=== PATIENT | female | born 1990 | race Two or more races ===

== ENCOUNTER 2018-02-02 15:03 | Inpatient (IN) | payer MEDICARE, OTHER ==
[~2018-02-02] VITALS: Ht 165.1 cm; Wt 88.5 kg
[2018-02-02] MEDS ORDERED: PRED20TA PO (16:10)
[2018-02-02] MEDS ORDERED: TACR1CAP PO (16:10)
[2018-02-02] MEDS ORDERED: MYCO500T PO (16:10)
[2018-02-02 16:24] VITALS: BP 91/45
--- NOTE | 2018-02-02 17:27 | NUR ---
URGENT CARE NURSE PRACTITIONER NOTE RECEIVED PATIENT FROM [facility] DIRECT ADMIT UNDER CARE DONNIE MARTINEZ RN BUDGET SPECIALIST, PATIENT ALERT ORIENTED X3 ,PLACED ON TELE MONITOR SR 65 , PLAN OF CARE DISCUSSED WITH PATIENT , BED IN LOWEST AND LOCKED POSITION , CALL LIGHT WITHIN REACH , HOSPITAL ORIENTATION DONE , VS TAKE BELONGING CHECKED , PAGED TO DONNIE SOMMER BUDGET SPECIALIST FOR ADMISSION ORDERS, WILL CONT TO MONITOR CLOSELY
[2018-02-02] MEDS ORDERED: IV NS 0.9% 1,000 ML IV SCH (17:30)
[2018-02-02] MEDS ORDERED: Z GUARD REMEDY 2 OZ OINT TP PRN (17:30)
[2018-02-02] MEDS ORDERED: predniSONE 20 MG TABLET PO SCH (17:30)
[2018-02-02] MEDS ORDERED: MAG HYDROX/AL HYDROX/SIMETH 30 ML UDC PO PRN (17:30)
[2018-02-02] MEDS ORDERED: MAGNESIUM HYDROXIDE 30 ML UDC PO PRN (17:30)
[2018-02-02] MEDS ORDERED: TACROLIMUS ANHYDROUS 1 MG CAPSULE PO SCH (17:30)
[2018-02-02] MEDS ORDERED: MYCOPHENOLATE MOFETIL 250 MG CAPSULE PO SCH (17:30)
[2018-02-02] MEDS ORDERED: ONDANSETRON HCL/PF 4 MG/2 ML VIAL IVP PRN (17:30)
[2018-02-02 17:57] LABS: BASOPHILS # (AUTO) 0.1 /CMM (0.0-0.2); EOSINOPHILS % (AUTO) 0.6 % (0.0-6.0); HEMATOCRIT 41 % (33-45); HEMOGLOBIN 13.9 g/dL (11.5-14.8); LYMPHOCYTES # (AUTO) 1.8 /CMM (0.8-4.8); LYMPHOCYTES % (AUTO) 32.2 % (20.0-44.0); MEAN CORPUSCULAR HGB CONC 34 g/dl (31.0-36.0); MEAN CORPUSCULAR VOLUME 90 fL (82-100); MONOCYTES # (AUTO) 0.3 /CMM (0.1-1.30); MONOCYTES % (AUTO) 5.2 % (2.0-12.0); NEUTROPHILS # (AUTO) 3.3 /CMM (1.8-8.9); PLATELET COUNT (AUTO) 134 /CMM (150-450); RDW COEFFICIENT OF VARIATION 13.6 (11.5-15.0); RED BLOOD CELL COUNT(AUTO) 4.59 MIL/uL (4.0-5.2); WHITE BLOOD COUNT (AUTO) 5.4 K/uL (4.3-11.0)
--- NOTE | 2018-02-02 18:00 | NUR ---
LIME KILN OPERATOR NOTE KHOI PINO RN HEAT TREATER HEAD AT BEDSIDE EXAMINED PATIENT , BLOOD DROWN BY HEAD OF HOUSEKEEPING. MRSA SWAB DONE
[2018-02-02 18:13] LABS: CHOLESTEROL 174 mg/dL (<200); HDL CHOLESTEROL 52 mg/dL (40-60); LDL 86 mg/dL (0-99); TRIGLYCERIDES 168 mg/dL (30-150)
[2018-02-02 18:15] LABS: ALANINE AMINOTRANSFERASE 82 U/L (12-78); ALBUMIN 2.9 g/dL (3.4-5.0); ALKALINE PHOSPHATASE 256 U/L (46-116); ASPARTATE AMINOTRANSFERASE 54 U/L (15-37); BILIRUBIN,DIRECT 0.2 mg/dL (0.0-0.2); BILIRUBIN,TOTAL 0.7 mg/dL (0.2-1.0); CALCIUM, SERUM 8.5 mg/dL (8.5-10.1); CARBON DIOXIDE 30 mmol/L (21-32); CHLORIDE 109 mmol/L (98-107); CREATININE 0.7 mg/dL (0.6-1.3); GLUCOSE 92 mg/dL (74-106); MAGNESIUM 1.7 mg/dL (1.8-2.4); PHOSPHORUS 2.8 mg/dL (2.5-4.9); SODIUM SERUM 146 mmol/L (136-145); UREA NITROGEN, BLOOD 8 mg/dL (7-18)
[2018-02-02 18:16] LABS: ALBUMIN 2.9 g/dL (3.4-5.0)
[2018-02-02 18:19] LABS: TROPONIN I < 0.017 ng/mL (0.00-0.056)
[2018-02-02 18:23] LABS: POTASSIUM 2.7 mmol/L (3.5-5.1)
[2018-02-02 18:29] LABS: INR 0.88 (0.87-1.13)
[2018-02-02] MEDS ORDERED: PANTOPRAZOLE 40 MG VIAL IV SCH (18:30)
[2018-02-02] MEDS: POTASSIUM CL. PREMIX PERIPHER. 50 ML IV SCH ×3 (18:58→22:31)
--- NOTE | 2018-02-02 19:02 | NUR ---
HEAVY FORGING MACHINE OPERATOR NOTE REPORTED TO DONNIE SOMMER FLEET SALES ASSOCIATE K 2.7 WITH NEW ORDER KCL GIVEN DVT PUMPS BOTH LEGS APPALLED, WILL CONT TO MONITOR CLOSELY
[2018-02-02 20:00] VITALS: BP 110/72
[2018-02-02] MEDS: Potassium Chloride 20 MEQ in IV D5/0.45 NACL 1,000 ML IV SCH (20:18)
--- NOTE | 2018-02-02 20:20 | NUR ---
TELE/RAILROAD TRACK MECHANIC; RECEIVED PT'S REPORTS FROM RNLILLI FOR RICK[facility]. AT THIS TIME PT IN THE ROOM STANDING ON HER CELL PHONE. ON TELEMETRY. DENIES PAIN. HL INTACT LAC. BED ON LOWER POSITION AND LOCKED FOR SAFETY. SIDE RAILS X 2 ARE UP FOR SAFETY.
--- NOTE | 2018-02-02 20:30 | NUR ---
TELE/BROOMMAKER; I CALLED LAB. URINE SPECIMEN IS AVAILABLE FOR REVOLVING INVENTORY CLERK AND A LADY LAB. TECH DIONTE SAID OK. I NOTED ALSO THAT PT WENT FROM THE UNIT AND I TOLD THE CHARGE NURSE , AND PT SAID THAT THE DOCTOR ALLOWED HER TO GET OUT. SO I DID WENT AFTER HER AND I NOTIFIED THE SECURITY AND PT WAS IN THE PARKING AREA NEAR THE ER AND SHE WAS FOUND BY THE SECURITIES AND ESCORTED HER WITH HER BOYFRIEND BACK TO THE [facility] UNIT AND TO HER ROOM. I TOLD THE PT THAT NO ORDER FOR HER TO GET OUT THE UNIT. I TOLD HER ALSO THE RN IIS GOING TO START THE POTASSIUM IVPB REPLACEMENTS.
[2018-02-02 20:50] LABS: APPEARANCE,URINE SL CLOUDY (CLEAR); BILIRUBIN,URINE NEGATIVE (NEGATIVE); BLOOD, URINE NEGATIVE Ery/uL (NEGATIVE); COLOR,URINE YELLOW (YELLOW); KETONES,URINE NEGATIVE (NEGATIVE); LEUKOCYTE ESTERASE ,URINE 1+ (NEGATIVE); NITRITE, URINE NEGATIVE (NEGATIVE); PROTEIN,URINE NEGATIVE (NEGATIVE); UGLUCOSE NEGATIVE (NEGATIVE)
[2018-02-02 21:24] LABS: BACTERIA,URINE Many /HPF (None Seen); RBC,URINE NONE SEEN /HPF (0-2); SQUAMOUS EPITHELIAL CELL,UR Moderate /HPF (None Seen)
[2018-02-02] MEDS: MYCOPHENOLATE MOFETIL 250 MG CAPSULE PO SCH (22:04)
[2018-02-02] MEDS: predniSONE 20 MG TABLET PO SCH (22:06)
[2018-02-02] MEDS: TACROLIMUS ANHYDROUS 1 MG CAPSULE PO SCH (22:06)
[2018-02-03] VITALS (7 sets, daily range): BP systolic 105–143; BP diastolic 60–71
[2018-02-03] MEDS: POTASSIUM CL. PREMIX PERIPHER. 50 ML IV SCH (00:20)
[2018-02-03 06:39] LABS: BASOPHILS % (AUTO) 0.3 % (0.0-2.0); EOSINOPHILS % (AUTO) 0.1 % (0.0-6.0); HEMATOCRIT 44 % (33-45); HEMOGLOBIN 14.9 g/dL (11.5-14.8); LYMPHOCYTES # (AUTO) 0.8 /CMM (0.8-4.8); LYMPHOCYTES % (AUTO) 12.8 % (20.0-44.0); MEAN CORPUSCULAR HGB CONC 34 g/dl (31.0-36.0); MEAN CORPUSCULAR VOLUME 90 fL (82-100); MONOCYTES # (AUTO) 0.1 /CMM (0.1-1.30); MONOCYTES % (AUTO) 1.2 % (2.0-12.0); NEUTROPHILS # (AUTO) 5.4 /CMM (1.8-8.9); NEUTROPHILS % (AUTO) 85.6 % (43.0-81.0); PLATELET COUNT (AUTO) 142 /CMM (150-450); RDW COEFFICIENT OF VARIATION 14.1 (11.5-15.0); WHITE BLOOD COUNT (AUTO) 6.3 K/uL (4.3-11.0)
--- NOTE | 2018-02-03 06:52 | NUR ---
TELE/RN TESTING; SLEPT AT GOOD INTERVALS. PT ON SB 57. IVF ON PROGRESS. SHE SAID VOIDED X1 NO BM. DENIES PAIN. WILL ENDORSE TO THE DAY SHIFT . CALL LIGHT WITHIN REACH.
[2018-02-03 06:59] LABS: CALCIUM, SERUM 8.9 mg/dL (8.5-10.1); CREATININE 0.6 mg/dL (0.6-1.3); POTASSIUM 3.7 mmol/L (3.5-5.1)
--- NOTE | 2018-02-03 07:25 | NUR ---
SHOVEL ENGINEER NOTES PATIENT RECEIVED RESTING INSIDE ROOM, SLEEPING, EASILY AROUSABLE THROUGH VERBAL AND TACTILE STIMULI. PATIENT BREATHING EVEN AND UNLABORED. NO SOB OR ACUTE DISTRESS NOTED. PATIENT DENIES ANY PAIN OR DISCOMFORT. NO CHANGES IN LOC NOTED. IV SITE INTACT AND PATENT. WILL CONTINUE TO MONITOR. BED LOCKED AND IN LOW POSITION. BILATERAL UPPER SIDE RAILS UP AND LOCKED. CALL LIGHT WITHIN EASY REACH
[2018-02-03 07:32] LABS: ALBUMIN 2.8 g/dL (3.4-5.0); BILIRUBIN,TOTAL 0.7 mg/dL (0.2-1.0); TOTAL PROTEIN, SERUM 6.2 g/dL (6.4-8.2)
[2018-02-03] MEDS: MYCOPHENOLATE MOFETIL 250 MG CAPSULE PO SCH (08:49)
[2018-02-03] MEDS: TACROLIMUS ANHYDROUS 1 MG CAPSULE PO SCH (08:49)
[2018-02-03] MEDS: predniSONE 20 MG TABLET PO SCH (08:49)
[2018-02-03] MEDS: Potassium Chloride 20 MEQ in IV D5/0.45 NACL 1,000 ML IV SCH (09:28)
--- NOTE | 2018-02-03 09:30 | NUR ---
MORTGAGE LOAN INTERVIEWER NOTES PATIENT WITH EPISODES OF REQUESTING TO TURN OFF IV. DOEST NOT COMPLAIN OF PAIN OR DISCOMFORT. NO SWELLING OR DISCOLORATION ON IV SITE. PATIENT DUE FOR NEXT BAG OF IV D5 1/2 NS WITH KCL 20 MEQ. CURRENT BAG STILL NOTED WITH REMAINING 310 ML. WILL CONTINUE TO MONITOR
[2018-02-03] MEDS ORDERED: CEPH-570 PO (15:28)
[2018-02-03] MEDS ORDERED: POTA20TA83 PO (15:28)
--- NOTE | 2018-02-03 16:00 | NUR ---
TAP AND DIE MAKER TECHNICIAN NOTES PATIENT SEEN AND EXAMINED BY DONNIE BARNES. WITH ORDERS TO DO STAT HCG/ TEST ON BLOOD SAMPLE THAT WAS DRAWN THIS AM. ORDER NOTED AND CARRIED OUT. LAB MADE AWARE. RESULT OBTAINED WITH 'NEGATIVE' REPORT. DONNIE BARNES MADE AWARE AND GAVE ORDER FOR PATIENT TO DC HOME. ORDER NOTED AND CARRIED OUT. PATIENT MADE AWARE AND VERBALIZED UNDERSTANDING.
--- NOTE | 2018-02-03 17:03 | NUR ---
SKIDDER NOTES PATIENT WITH ORDER TO DISCHARGE HOME TODAY. DISCHARGE TEACHING AND INSTRUCTIONS PROVIDED AND VERBALIZED UNDERSTANDING. PATIENT WITH FOLLOW-UP APPOINTMENT SET UP AT [facility] ON TUESDAY. PATIENT AWARE AND VERBALIZED UNDERSTANDING. PATIENT PROVIDED WITH WRITTEN PRESCRIPTIONS OF MEDICATIONS. ALL BELONGINGS COMPLETE UPON DISCHARGE, NO REPORT OF MISSING INVENTORY. PATIENT AFEBRILE, SKIN DRY AND WARM TO TOUCH. NO CHANGES IN LOC NOTED. NO NEW SKIN BREAKDOWN NOTED. IV REMOVED WITH MINIMAL BLEEDING NOTED, PRESSURE DRESSING APPLIED. BOYFRIEND PRESENT IN UNIT TO PICK PATIENT UP. PATIENT LEFT UNIT AMBULATORY, NO EPISODE OF FALL OR INJURY DURING DISCHARGE. PATIENT LEFT AT 1700 VIA PRIVATE CAR. DONNIE BARNES PRESENT AT UNIT AND AWARE OF DISCHARGE.
[2018-02-04] MEDS ORDERED: POTASSIUM CHLORIDE 20 MEQ TAB.PRT.SR PO SCH (09:00)
== END 2018-02-03 17:00 | disposition home or self-care (01) | DRG 690 ==
LOC: TELE1 15:59
PROVIDERS: ADMIT Registered Nurse; ATTEND Registered Nurse
DX: N39.0 Urinary tract infection, site not specified (principal); Z94.4 Liver transplant status; E46 Unspecified protein-calorie malnutrition; E87.6 Hypokalemia; E86.0 Dehydration; R00.1 Bradycardia, unspecified; E83.01 Wilson's disease; M79.2 Neuralgia and neuritis, unspecified; E66.9 Obesity, unspecified; Z98.84 Bariatric surgery status; Z68.32 Body mass index [BMI] 32.0-32.9, adult; Z87.311 Personal history of (healed) other pathological fracture; B96.89 Other specified bacterial agents as the cause of diseases classified elsewhere
CPT/HCPCS: 36415; 80048-TC; 80053-TC; 80061-TC; 80076-TC; 81000-TC; 82040-TC; 83735-TC; 84100-TC; 84155-TC; 84484-TC; 84703-TC; 85025-TC; 85730-TC; 87081-TC; 87086-TC; 87186-TC; C9113; J3480; J3490; J7030; J7050; J7507; J7517; Z7610

== ENCOUNTER 2018-11-30 10:42 | Emergency (ER) | payer MEDICARE, OTHER ==
[~2018-11-30] VITALS: Ht 165.1 cm; Wt 88.5 kg
[~2018-11-30 10:42] MED LIST: CEPH-570 PO; MYCO500T PO; POTA20TA83 PO; PRED20TA PO; TACR1CAP PO
--- NOTE | 2018-11-30 10:55 | NUR ---
aaox3, came to er c/o "Yellow eyes and vomiting blood x2days. 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 RR is even and unlabored with nad noted. skin is warm and dry. Placed on the monitor. Will continuously monitor the patient. Awaiting md for eval.
[2018-11-30 11:26] LABS: BASOPHILS % (AUTO) 1.1 % (0.0-2.0); EOSINOPHILS % (AUTO) 0.2 % (0.0-6.0); HEMATOCRIT 42 % (33-45); HEMOGLOBIN 13.9 g/dL (11.5-14.8); LYMPHOCYTES # (AUTO) 2.4 /CMM (0.8-4.8); LYMPHOCYTES % (AUTO) 52.9 % (20.0-44.0); MEAN CORPUSCULAR HGB CONC 33 g/dl (31.0-36.0); MEAN CORPUSCULAR VOLUME 87 fL (82-100); MONOCYTES # (AUTO) 0.3 /CMM (0.1-1.30); MONOCYTES % (AUTO) 7.5 % (2.0-12.0); NEUTROPHILS # (AUTO) 1.7 /CMM (1.8-8.9); NEUTROPHILS % (AUTO) 38.3 % (43.0-81.0); PLATELET COUNT (AUTO) 107 /CMM (150-450); RED BLOOD CELL COUNT(AUTO) 4.79 MIL/uL (4.0-5.2); WHITE BLOOD COUNT (AUTO) 4.4 K/uL (4.3-11.0)
[2018-11-30] MEDS ORDERED: IV NS 0.9% 500 ML BAG IV ONE (11:30)
[2018-11-30 11:32] LABS: CALCIUM, SERUM 9.2 mg/dL (8.5-10.1); CREATININE 0.8 mg/dL (0.6-1.3); POTASSIUM 3.4 mmol/L (3.5-5.1)
[2018-11-30 11:39] LABS: ALBUMIN 3.3 g/dL (3.4-5.0); BILIRUBIN,DIRECT 6.2 mg/dL (0.0-0.2); BILIRUBIN,TOTAL 7.8 mg/dL (0.2-1.0)
[2018-11-30 11:58] LABS: APPEARANCE,URINE Clear (CLEAR); BILIRUBIN,URINE LARGE (NEGATIVE); BLOOD, URINE Negative Ery/uL (NEGATIVE); KETONES,URINE Trace (NEGATIVE); LEUKOCYTE ESTERASE ,URINE Negative (NEGATIVE); NITRITE, URINE Negative (NEGATIVE); PROTEIN,URINE 30 mg/dl (NEGATIVE); UGLUCOSE 100 MG/DL mg/dL (NEGATIVE); UROBILINOGEN,URINE >=8.0 EU/dL (0.2)
[2018-11-30 12:00] LABS: COLOR,URINE AMBER (YELLOW)
[2018-11-30 12:14] LABS: MUCUS,URINE Moderate /LPF (None Seen); SQUAMOUS EPITHELIAL CELL,UR Moderate /HPF (None Seen)
[2018-11-30 12:15] LABS: BACTERIA,URINE Moderate /HPF (None Seen); WBC,URINE 0-2 /HPF (0-3)
[2018-11-30 12:17] LABS: RBC,URINE 0-2 /HPF (0-2)
--- NOTE | 2018-11-30 13:35 | NUR ---
Spoke to Sustainable Agriculture Specialist Amaya call redirected to Dr Cruz
--- NOTE | 2018-11-30 14:49 | NUR ---
Patient is resting comfortably in bed with eyes closed. Easily aroused. VSS
--- NOTE | 2018-11-30 15:30 | NUR ---
Patient is resting comfortably in bed with eyes closed. Easily aroused. VSS
--- NOTE | 2018-11-30 17:30 | NUR ---
Patient is resting comfortably in bed with eyes closed. Easily aroused. VSS
--- NOTE | 2018-11-30 17:50 | NUR ---
provided food at
--- NOTE | 2018-11-30 19:07 | NUR ---
Patient is resting comfortably in bed. VSS
--- NOTE | 2018-11-30 19:29 | NUR ---
REPORT REC'D FROM ROS BARNEY FOR [facility].
--- NOTE | 2018-11-30 21:21 | NUR ---
CALLED [facility], SPOKE TO ALBERT WHO IS TRANSFERRING ME TO THE TRANSFER CENTER.
--- NOTE | 2018-11-30 21:24 | NUR ---
SPOKE TO THE TRANSFER CENTER, [facility], AND THERE ARE NO BEDS AVAILABLE AT THIS TIME. THEY WILL CALL US WHEN A BED BECOMES AVAILABLE.
--- NOTE | 2018-11-30 21:56 | NUR ---
DR ZENG IS AT THE BEDSIDE SPEAKING TO THE PT.
--- NOTE | 2018-11-30 22:00 | NUR ---
APatient does not wish to proceed with medical care recommended by Dr. ZENG. Patient given information related to possible complications, up to and including , which could occur as a result of leaving the hospital at this time. Patient verbalizes understanding of risks involved due to leaving against medical advice. Patient has signed AMA form.
--- NOTE | 2018-11-30 22:03 | NUR ---
IV removed. Catheter intact and site benign. Pressure and 4x4 applied to site. No bleeding noted.
--- NOTE | 2018-11-30 22:03 | NUR ---
PT REC'D A COPY OF ALL LABS.
--- NOTE | 2018-11-30 22:10 | NUR ---
PT AMBULATED OUT WITH A STEADY GAIT. PT'S IS DRIVING.
[2018-11-30 22:21] VITALS: BP 127/75
== END 2018-11-30 22:23 | disposition left against medical advice (07) ==
LOC: ER 10:51
DX: K72.90 Hepatic failure, unspecified without coma (principal); E83.01 Wilson's disease; R42 Dizziness and giddiness; Z88.8 Allergy status to other drugs, medicaments and biological substances
CPT/HCPCS: 36415; 80048; 80076; 81001; 83690; 85025; 85730; 87086; 96360; 99285; J7030; 81000-TC

== ENCOUNTER 2019-05-17 19:03 | Emergency (ER) | payer MEDICAID, OTHER ==
[~2019-05-17] VITALS: Ht 160 cm; Wt 93.0 kg
--- NOTE | 2019-05-17 19:17 | NUR ---
""Fell 2days ago while going upstairs fell backwards hit my head on concreteI have headache/ribs/entire body aching" pt aaox4, -sob ,nad noted, vss ,pending md ceballos
[2019-05-17] MEDS ORDERED: MORPHINE SULFATE INJ 2 MG/ML DISP.SYRIN IM ONE (19:30)
[2019-05-17] MEDS ORDERED: MORPHINE SULFATE INJ 2 MG/ML DISP.SYRIN ONE (19:36)
[2019-05-17] MEDS ORDERED: MORPHINE SULFATE INJ 4 MG/ML DISP.SYRIN ONE ×2 (19:37→20:47)
[2019-05-17] MEDS ORDERED: MORPHINE SULFATE INJ 2 MG/ML DISP.SYRIN IV ONE (20:30)
[2019-05-17] MEDS ORDERED: IV NS 0.9% 500 ML BAG IV ONE (20:30)
[2019-05-17 20:33] LABS: BASOPHILS % (AUTO) 0.7 % (0.0-2.0); EOSINOPHILS % (AUTO) 1.2 % (0.0-6.0); HEMATOCRIT 43 % (33-45); HEMOGLOBIN 14.3 g/dL (11.5-14.8); LYMPHOCYTES # (AUTO) 0.9 /CMM (0.8-4.8); LYMPHOCYTES % (AUTO) 21.1 % (20.0-44.0); MEAN CORPUSCULAR HGB CONC 33 g/dl (31.0-36.0); MEAN CORPUSCULAR VOLUME 85 fL (82-100); MONOCYTES # (AUTO) 0.2 /CMM (0.1-1.30); MONOCYTES % (AUTO) 5.1 % (2.0-12.0); NEUTROPHILS # (AUTO) 2.9 /CMM (1.8-8.9); NEUTROPHILS % (AUTO) 71.9 % (43.0-81.0); PLATELET COUNT (AUTO) 61 /CMM (150-450); RED BLOOD CELL COUNT(AUTO) 5.05 MIL/uL (4.0-5.2); WHITE BLOOD COUNT (AUTO) 4.1 K/uL (4.3-11.0)
[2019-05-17 20:41] LABS: CALCIUM, SERUM 9.1 mg/dL (8.5-10.1); CREATININE 0.6 mg/dL (0.6-1.3); POTASSIUM 3.1 mmol/L (3.5-5.1)
[2019-05-17 20:47] LABS: ALBUMIN 2.8 g/dL (3.4-5.0); BILIRUBIN,DIRECT 1.1 mg/dL (0.0-0.2); BILIRUBIN,TOTAL 1.7 mg/dL (0.2-1.0); TOTAL PROTEIN, SERUM 7.1 g/dL (6.4-8.2)
[2019-05-17] MEDS ORDERED: CT SWABBABLE VALVE TRANS SET 1 EA INFUS.SET MC ONE (21:11)
[2019-05-17] MEDS ORDERED: IOHEXOL-300 100 ML VIAL IV ONE (21:11)
[2019-05-17] MEDS ORDERED: IV NS 0.9% 250 ML IV ONE (21:11)
[2019-05-17] MEDS ORDERED: diphenhydrAMINE HCL 50 MG/ML VIAL ONE (21:19)
[2019-05-17 21:23] LABS: BAND % (MANUAL) 3 % (0.0-5.0); EOSINOPHILS % (MANUAL) 1 % (0-4); LYMPHOCYTES % (MANUAL) 24 % (16-48); MONOCYTES % (MANUAL) 5 % (0-11.0); NEUTROPHILS % (MANUAL) 67 (42-76)
[2019-05-17] MEDS ORDERED: diphenhydrAMINE HCL 50 MG/ML VIAL IV ONE (21:30)
[2019-05-17 22:30] VITALS: BP 132/69
[2019-05-17] MEDS ORDERED: HYDROMORPHONE 1 MG/1 ML DISP.SYRIN IV ONE (22:30)
[2019-05-17] MEDS ORDERED: HYDROMORPHONE 1 MG/1 ML DISP.SYRIN ONE (22:33)
--- NOTE | 2019-05-17 23:01 | NUR ---
Patient discharged to home in stable condition. Written and verbal after care instructions given. Patient verbalizes understanding of instruction. IV removed. Catheter intact and site benign. Pressure and 4x4 applied to site. No bleeding noted.
== END 2019-05-17 23:02 | disposition home or self-care (01) ==
LOC: ER 19:05
DX: S22.32XA Fracture of one rib, left side, initial encounter for closed fracture (principal); S22.31XA Fracture of one rib, right side, initial encounter for closed fracture; S32.008A Other fracture of unspecified lumbar vertebra, initial encounter for closed fracture; D69.6 Thrombocytopenia, unspecified; R74.0 Nonspecific elevation of levels of transaminase and lactic acid dehydrogenase [LDH]; E83.01 Wilson's disease; K76.0 Fatty (change of) liver, not elsewhere classified; R16.1 Splenomegaly, not elsewhere classified; Z90.49 Acquired absence of other specified parts of digestive tract; Z94.4 Liver transplant status; W01.198A Fall on same level from slipping, tripping and stumbling with subsequent striking against other object, initial encounter; Y93.89 Activity, other specified; Y92.89 Other specified places as the place of occurrence of the external cause; Y99.8 Other external cause status
CPT/HCPCS: 36415; 71111; 71260; 74177; 80048; 80076; 85025; 85730; 96372; 96374; 96375; 99284; J1170; J1200; J2270 ×3; J7040; J7050; Q9967

== ENCOUNTER 2019-07-12 20:25 | Emergency (ER) | payer MEDICAID ==
[~2019-07-12] VITALS: Ht 165.1 cm; Wt 92.1 kg
--- NOTE | 2019-07-12 20:45 | NUR ---
Note undone in EDM - 07/12/19 at 2109 by EVICTOR PT AAOX4. AMBULATORY. C/O L RIBCAGE PAIN 05/01 SHARP S/P GLF 5 FLIGHT OF STAIRS X 2DAYS AGO. (-) KO. BLUE HEMATOMA ON BOTH ARMS. PT STATED SHE FELL A MONTH AGO WELL AND BROKE HER RIBS. PT BREATHING EVEN AND UNLABORED. PT HAVING PAIN UPON INHALATION. PLACED ON MONITOR AND PULSE OX. AWAITING MD FOR EVAL.
--- NOTE | 2019-07-12 20:45 | NUR ---
PT AAOX4. AMBULATORY. C/O L RIBCAGE PAIN 05/01 SHARP S/P GLF 5 FLIGHT OF STAIRS X 2DAYS AGO. (-) KO. BLUE HEMATOMA ON BOTH ARMS. PT STATED SHE FELL A MONTH AGO WELL AND BROKE HER RIBS. ALSO STATED, SHE HAS BEEN FEELING LIGHT HEADED FOR 3 MONTHS WHICH MAKES HER LOSE CONTROL AND FALLS. PT BREATHING EVEN AND UNLABORED. PT HAVING PAIN UPON INHALATION. PLACED ON MONITOR AND PULSE OX. AWAITING MD FOR EVAL.
[2019-07-12] MEDS ORDERED: ONDANSETRON HCL/PF 4 MG/2 ML VIAL ONE (21:27)
[2019-07-12] MEDS ORDERED: MORPHINE SULFATE INJ 4 MG/ML DISP.SYRIN ONE (21:28)
--- NOTE | 2019-07-12 21:34 | NUR ---
URINE COLLECTED AND SENT TO LAB
[2019-07-12 21:39] LABS: APPEARANCE,URINE Clear (CLEAR); BILIRUBIN,URINE Negative (NEGATIVE); BLOOD, URINE Negative Ery/uL (NEGATIVE); COLOR,URINE Yellow (YELLOW); KETONES,URINE Negative (NEGATIVE); LEUKOCYTE ESTERASE ,URINE Small (NEGATIVE); NITRITE, URINE Negative (NEGATIVE); PROTEIN,URINE Negative (NEGATIVE); UGLUCOSE Negative (NEGATIVE)
[2019-07-12] MEDS: IV NS 0.9% 1,000 ML BAG IV ONE (21:40)
[2019-07-12 21:45] LABS: BASOPHILS % (AUTO) 0.7 % (0.0-2.0); HEMATOCRIT 43 % (33-45); HEMOGLOBIN 14.2 g/dL (11.5-14.8); LYMPHOCYTES # (AUTO) 1.1 /CMM (0.8-4.8); LYMPHOCYTES % (AUTO) 27.4 % (20.0-44.0); MEAN CORPUSCULAR HGB CONC 33 g/dl (31.0-36.0); MEAN CORPUSCULAR VOLUME 88 fL (82-100); MONOCYTES # (AUTO) 0.3 /CMM (0.1-1.30); MONOCYTES % (AUTO) 7.5 % (2.0-12.0); NEUTROPHILS # (AUTO) 2.5 /CMM (1.8-8.9); NEUTROPHILS % (AUTO) 63.4 % (43.0-81.0); PLATELET COUNT (AUTO) 110 /CMM (150-450); RED BLOOD CELL COUNT(AUTO) 4.91 MIL/uL (4.0-5.2)
[2019-07-12] MEDS: MORPHINE SULFATE INJ 2 MG/ML DISP.SYRIN IV ONE (21:45)
[2019-07-12] MEDS: ONDANSETRON HCL/PF 4 MG/2 ML VIAL IVP ONE (21:48)
[2019-07-12 21:56] LABS: RBC,URINE NONE SEEN /HPF (0-2)
[2019-07-12 21:57] LABS: BACTERIA,URINE 1+ /HPF (None Seen); SQUAMOUS EPITHELIAL CELL,UR Few /HPF (None Seen)
[2019-07-12 22:02] LABS: ALBUMIN 3.2 g/dL (3.4-5.0); BILIRUBIN,DIRECT 0.7 mg/dL (0.0-0.2); BILIRUBIN,TOTAL 1.1 mg/dL (0.2-1.0); CALCIUM, SERUM 9.5 mg/dL (8.5-10.1); CREATININE 0.6 mg/dL (0.6-1.3); POTASSIUM 3.5 mmol/L (3.5-5.1); TOTAL PROTEIN, SERUM 7.2 g/dL (6.4-8.2)
--- NOTE | 2019-07-12 22:16 | NUR ---
BACKK FROM XRAY
--- NOTE | 2019-07-12 22:16 | NUR ---
Margarita ramos in ED - 07/12/19 at [address] ON W/C
[2019-07-12] MEDS ORDERED: diphenhydrAMINE HCL 50 MG/ML VIAL ONE (22:26)
[2019-07-12] MEDS: diphenhydrAMINE HCL 50 MG/ML VIAL IV ONE (22:30)
--- NOTE | 2019-07-12 22:31 | NUR ---
Patient is resting comfortably in bed with eyes closed. Easily aroused. VSS
--- NOTE | 2019-07-12 22:36 | NUR ---
PT AMBULATED TO RESTROOM
[2019-07-12] MEDS ORDERED: HYDROMORPHONE 1 MG/1 ML DISP.SYRIN ONE (22:57)
[2019-07-12] MEDS: HYDROMORPHONE 1 MG/1 ML DISP.SYRIN IV ONE (23:00)
--- NOTE | 2019-07-12 23:39 | NUR ---
Margarita ramos in ED - 07/12/19 at 2356 by EVANGELINA Patient discharged to home in stable condition. Written and verbal after care instructions given. Patient verbalizes understanding of instruction.
--- NOTE | 2019-07-12 23:39 | NUR ---
AFTER CARE INSTRUCTIONS WERE PROVIDED VERBALLY. AFTERCARE INSTRUCTIONS WERE NOT PRINTED DUE TO SYSTEMS BEING DOWN.
[2019-07-13 00:55] VITALS: BP 138/74
== END 2019-07-12 23:40 | disposition home or self-care (01) ==
LOC: ER 20:27
DX: S40.021A Contusion of right upper arm, initial encounter (principal); S50.12XA Contusion of left forearm, initial encounter; S20.212A Contusion of left front wall of thorax, initial encounter; S30.0XXA Contusion of lower back and pelvis, initial encounter; M48.54XA Collapsed vertebra, not elsewhere classified, thoracic region, initial encounter for fracture; N39.0 Urinary tract infection, site not specified; R50.9 Fever, unspecified; D72.819 Decreased white blood cell count, unspecified; D69.6 Thrombocytopenia, unspecified; R74.0 Nonspecific elevation of levels of transaminase and lactic acid dehydrogenase [LDH]; R74.8 Abnormal levels of other serum enzymes; E80.7 Disorder of bilirubin metabolism, unspecified; Z94.4 Liver transplant status; Z79.899 Other long term (current) drug therapy; Z88.5 Allergy status to narcotic agent; Z88.8 Allergy status to other drugs, medicaments and biological substances; W10.8XXA Fall (on) (from) other stairs and steps, initial encounter; Y93.89 Activity, other specified; Y92.89 Other specified places as the place of occurrence of the external cause; Y99.8 Other external cause status
CPT/HCPCS: 36415; 71046; 72110; 80048; 80076; 81001; 84703; 85025; 87086; 96374; 96375; 99284; J1170; J1200; J2270; J2405; J7030; 81000-TC

== ENCOUNTER 2019-09-28 19:05 | Emergency (ER) | payer MEDICAID ==
[~2019-09-28] VITALS: Ht 165.1 cm; Wt 88.5 kg
[~2019-09-28 19:05] MED LIST changes: -TACR1CAP PO; +TACR1CAP2 PO
--- NOTE | 2019-09-28 19:55 | NUR ---
PT CAME TO ER BED 9 C/O ABDOMINAL PAIN 05/01. PT STATES THAT SHE HAD A HISTORY OF A LIVER TRANSPLANT IN 2006, IN WHICH THE LAST 2x DAYS SHE NOTICED HER SKIN AND EYES ARE YELLOWING. PT HAS A SHARP ABDOMINAL PAIN WELL. AAOX4. NO SOB. BREATHING EVNELY AND UNLABORED ON ROOM AIR. CONNECTED TO MONITOR.
--- NOTE | 2019-09-28 20:14 | NUR ---
SEEN AND EXAMINED BY CLARENCE CHRISTIANSEN
[2019-09-28] MEDS ORDERED: ONDANSETRON HCL/PF 4 MG/2 ML VIAL ONE (20:19)
[2019-09-28] MEDS ORDERED: HYDROMORPHONE 1 MG/1 ML DISP.SYRIN ONE ×2 (20:20→21:10)
[2019-09-28 20:30] LABS: BASOPHILS % (AUTO) 0.2 % (0.0-2.0); HEMATOCRIT 42 % (33-45); HEMOGLOBIN 14.1 g/dL (11.5-14.8); LYMPHOCYTES # (AUTO) 0.7 /CMM (0.8-4.8); LYMPHOCYTES % (AUTO) 11.5 % (20.0-44.0); MEAN CORPUSCULAR HGB CONC 34 g/dl (31.0-36.0); MEAN CORPUSCULAR VOLUME 86 fL (82-100); MONOCYTES # (AUTO) 0.2 /CMM (0.1-1.30); MONOCYTES % (AUTO) 3.6 % (2.0-12.0); NEUTROPHILS # (AUTO) 5.2 /CMM (1.8-8.9); NEUTROPHILS % (AUTO) 84.7 % (43.0-81.0); PLATELET COUNT (AUTO) 111 /CMM (150-450); RED BLOOD CELL COUNT(AUTO) 4.87 MIL/uL (4.0-5.2); WHITE BLOOD COUNT (AUTO) 6.1 K/uL (4.3-11.0)
[2019-09-28] MEDS ORDERED: IV NS 0.9% 1,000 ML BAG IV ONE (20:30)
[2019-09-28] MEDS ORDERED: ONDANSETRON HCL/PF - ER 4 MG/2 ML VIAL IV ONE (20:30)
[2019-09-28] MEDS ORDERED: ONDANSETRON HCL/PF 4 MG/2 ML VIAL IVP ONE (20:30)
[2019-09-28] MEDS ORDERED: HYDROMORPHONE 1 MG/1 ML DISP.SYRIN IV ONE ×2 (20:30→21:30)
--- NOTE | 2019-09-28 20:31 | NUR ---
BLOOD DRAWN AND SENT TO LAB FOR TESTING
--- NOTE | 2019-09-28 20:47 | NUR ---
URINE COLLECTED AND SENT TO LAB
[2019-09-28 20:52] LABS: APPEARANCE,URINE Slightly Cloudy (CLEAR); BILIRUBIN,URINE LARGE (NEGATIVE); BLOOD, URINE Small Ery/uL (NEGATIVE); COLOR,URINE Amber (YELLOW); KETONES,URINE 15 (NEGATIVE); LEUKOCYTE ESTERASE ,URINE Negative (NEGATIVE); NITRITE, URINE Negative (NEGATIVE); PROTEIN,URINE 30 mg/dl (NEGATIVE); UGLUCOSE 100 MG/DL mg/dL (NEGATIVE); UROBILINOGEN,URINE >=8.0 EU/dL (0.2)
[2019-09-28 21:02] LABS: CALCIUM, SERUM 9.2 mg/dL (8.5-10.1); CREATININE 0.8 mg/dL (0.6-1.3); POTASSIUM 4.1 mmol/L (3.5-5.1)
[2019-09-28 21:02] LABS: WBC,URINE 0-2 /HPF (0-3)
[2019-09-28 21:03] LABS: BACTERIA,URINE Few /HPF (None Seen); SQUAMOUS EPITHELIAL CELL,UR Few /HPF (None Seen)
[2019-09-28 21:15] LABS: ALBUMIN 3.1 g/dL (3.4-5.0); BILIRUBIN,DIRECT 10.4 mg/dL (0.0-0.2); BILIRUBIN,TOTAL 11.8 mg/dL (0.2-1.0)
--- NOTE | 2019-09-28 23:59 | NUR ---
PATIENT TAKES: CYCLOSPORINE 6(25MG) TWICE A DAY PREDNISONE 60MG ONCE A DAY BACTRIM 800MG TUESDAY AND TUESDAY ONLY VALCYTE 450MG ONCE A DAY KOSTAS CEPT 1 GRAM TWICE A DAY
[2019-09-29] MEDS ORDERED: MYCOPHENOLATE MOFETIL 250 MG CAPSULE PO SCH (00:30)
[2019-09-29] MEDS ORDERED: HYDROMORPHONE 1 MG/1 ML DISP.SYRIN ONE ×2 (01:44→09:45)
[2019-09-29] MEDS ORDERED: HYDROMORPHONE INJ 0.5 MG/0.5 ML SYRINGE IV ONE (02:00)
--- NOTE | 2019-09-29 05:23 | NUR ---
Margarita ramos in [facility] - 09/29/19 at 0529 by OZZIE PT ACCEPTED TO [facility] BY DR MORENO. ROOM [id number]. # FOR REPORT [phone]
--- NOTE | 2019-09-29 05:47 | NUR ---
PATIENT IS ASLEEP. NOT IN ANY DISTRESS. BREATHING EVENLY AND UNLABORED ON ROOM AIR. EASILY AWOKEN THROUGH TACTILE AND VERBAL STIMULI. CALL LIGHT WITHIN REACH. AWAITING ACCEPTANCE FROM A FACILITY.
--- NOTE | 2019-09-29 08:26 | NUR ---
PT SLEEPING EASILY ARUSED VSS
--- NOTE | 2019-09-29 09:22 | NUR ---
PT AWAKE EATTING BREAKFAST TOLERATING WELL
--- NOTE | 2019-09-29 09:22 | NUR ---
PT DENIES PAIN AT THIS TIME
--- NOTE | 2019-09-29 09:49 | NUR ---
PT C/O ABD PAIN 03/31 DILAUDAID 1 MG IVP GIVEN PER MD ORDER MONITORS
[2019-09-29] MEDS ORDERED: HYDROMORPHONE 1 MG/1 ML DISP.SYRIN IV ONE (10:00)
--- NOTE | 2019-09-29 10:06 | NUR ---
PT SATTED FEELING BETTER PAIN MED EFFECTIVE
[2019-09-29] MEDS ORDERED: diphenhydrAMINE HCL 50 MG/ML VIAL ONE ×2 (10:37→15:45)
--- NOTE | 2019-09-29 10:45 | NUR ---
PT C/O ITCHING NOTIFIED
[2019-09-29] MEDS ORDERED: diphenhydrAMINE HCL 50 MG/ML VIAL IV ONE ×2 (11:00→16:00)
[2019-09-29] MEDS ORDERED: MORPHINE SULFATE INJ 4 MG/ML DISP.SYRIN ONE (12:47)
--- NOTE | 2019-09-29 12:53 | NUR ---
PT C/O PAIN MS 4 MG IVP PER MD ORDER GIVEN NOW
[2019-09-29] MEDS ORDERED: MORPHINE SULFATE INJ 10 MG/ML DISP.SYRIN IV ONE (13:00)
--- NOTE | 2019-09-29 14:32 | NUR ---
PT WATCHING TV RESTING EATTING
--- NOTE | 2019-09-29 15:04 | NUR ---
FREDA CALLED FROM TRANSFER C[facility]... [address] GIVE REPORT TO: [phone] [facility] ADDRESS IS: [address] [place] [id number]
[2019-09-29 15:14] VITALS: BP 128/93
--- NOTE | 2019-09-29 15:19 | NUR ---
CALLED TRANSPORT [facility] [phone] ETA 90 MINS TRIP #[id number]
--- NOTE | 2019-09-29 16:03 | NUR ---
GAVE REPORT TO SUREKHA SELF GIVEN BENADRYL 25 MG IVP FOR ITCHING PT HASNT HAD BM FOR 1 WEEK .
--- NOTE | 2019-09-29 16:51 | NUR ---
PT STABLE TRANSFER TO [facility]
== END 2019-09-29 16:55 | disposition short-term general hospital (02) ==
LOC: ER 19:06
DX: R17 Unspecified jaundice (principal); R10.84 Generalized abdominal pain; T86.41 Liver transplant rejection; T86.42 Liver transplant failure; E80.4 Gilbert syndrome; E83.01 Wilson's disease; Z98.890 Other specified postprocedural states; Z88.5 Allergy status to narcotic agent; Z88.8 Allergy status to other drugs, medicaments and biological substances; Z79.899 Other long term (current) drug therapy
CPT/HCPCS: 36415; 80048; 80076; 81001; 83690; 84703; 85025; 96374; 96375 ×2; 96376 ×2; 99285; J1170 ×3; J1200 ×2; J2270; J2405 ×2; J7030 ×2; 81000-TC

== ENCOUNTER 2020-08-04 20:38 | Emergency (ER) | payer MEDICAID ==
[~2020-08-04] VITALS: Ht 165.1 cm; Wt 77.6 kg
--- NOTE | 2020-08-04 21:03 | NUR ---
Patient came to the ER bed 18 c/o medial abdominal pain since 1x hours ago. patient states that she had just woken up an hour ago and vomited and felt a pop in her medial abomen where she recently had surgery. Also, c/o of nausea. Patient is AAoX4. No sob. Breathing evenly and unlabored on room air. connected to the monitor.
--- NOTE | 2020-08-04 21:07 | NUR ---
URINE COLLECTED, SENT TO LAB.
--- NOTE | 2020-08-04 21:11 | NUR ---
DRAMATIC TEACHER AT BEDSIDE FOR LABS.
[2020-08-04] MEDS ORDERED: ONDANSETRON HCL/PF 4 MG/2 ML VIAL ONE (21:12)
[2020-08-04] MEDS ORDERED: MORPHINE SULFATE INJ 4 MG/ML DISP.SYRIN ONE (21:13)
[2020-08-04 21:16] LABS: BILIRUBIN,URINE LARGE (NEGATIVE); BLOOD, URINE NEGATIVE Ery/uL (NEGATIVE); COLOR,URINE DARK YELLOW (YELLOW); LEUKOCYTE ESTERASE ,URINE NEGATIVE (NEGATIVE); NITRITE, URINE POSITIVE (NEGATIVE); PH,URINE 6.5 (5.0-8.0); PROTEIN,URINE 30 mg/dl (NEGATIVE); UGLUCOSE 100 MG/DL mg/dL (NEGATIVE)
[2020-08-04 21:16] LABS: BASOPHILS % (AUTO) 0.7 % (0.0-2.0); EOSINOPHILS % (AUTO) 0.9 % (0.0-6.0); HEMATOCRIT 41 % (33-45); HEMOGLOBIN 13.5 g/dL (11.5-14.8); LYMPHOCYTES # (AUTO) 0.8 /CMM (0.8-4.8); LYMPHOCYTES % (AUTO) 20.2 % (20.0-44.0); MEAN CORPUSCULAR HGB CONC 33 g/dl (31.0-36.0); MEAN CORPUSCULAR VOLUME 92 fL (82-100); MONOCYTES # (AUTO) 0.4 /CMM (0.1-1.30); MONOCYTES % (AUTO) 8.7 % (2.0-12.0); NEUTROPHILS # (AUTO) 2.9 /CMM (1.8-8.9); NEUTROPHILS % (AUTO) 69.5 % (43.0-81.0); PLATELET COUNT (AUTO) 77 /CMM (150-450); RED BLOOD CELL COUNT(AUTO) 4.44 MIL/uL (4.0-5.2); WHITE BLOOD COUNT (AUTO) 4.2 K/uL (4.3-11.0)
[2020-08-04] MEDS ORDERED: MORPHINE SULFATE INJ 2 MG/ML DISP.SYRIN IV ONE ×2 (21:30→22:30)
[2020-08-04] MEDS ORDERED: ONDANSETRON HCL/PF 4 MG/2 ML VIAL IVP ONE (21:30)
[2020-08-04] MEDS ORDERED: IV NS 0.9% 1,000 ML BAG IV ONE (21:30)
[2020-08-04 21:47] LABS: ALBUMIN 2.7 g/dL (3.4-5.0); BILIRUBIN,DIRECT 1.8 mg/dL (0.0-0.2); CALCIUM, SERUM 8.7 mg/dL (8.5-10.1); CREATININE 0.8 mg/dL (0.6-1.3); TOTAL PROTEIN, SERUM 6.9 g/dL (6.4-8.2)
[2020-08-04 22:24] LABS: BACTERIA,URINE 2+ /HPF (None Seen); CALCIUM OXALATE CRYSTALS,UR Moderate /HPF (None Seen); RBC,URINE 0-2 /HPF (0-2); SQUAMOUS EPITHELIAL CELL,UR Moderate /HPF (None Seen); WBC,URINE 0-2 /HPF (0-3)
[2020-08-04] MEDS ORDERED: diphenhydrAMINE HCL 50 MG/ML VIAL IV ONE (22:30)
[2020-08-04] MEDS ORDERED: IOHEXOL-300 100 ML VIAL IV ONE (22:32)
[2020-08-04] MEDS ORDERED: IV NS 0.9% 250 ML IV ONE (22:32)
[2020-08-04] MEDS ORDERED: diphenhydrAMINE HCL 50 MG/ML VIAL ONE (22:36)
[2020-08-04] MEDS ORDERED: MORPHINE SULFATE INJ 2 MG/ML DISP.SYRIN ONE (22:37)
[2020-08-04 23:02] LABS: LYMPHOCYTES % (MANUAL) 20 % (16-48); MONOCYTES % (MANUAL) 7 % (0-11.0); NEUTROPHILS % (MANUAL) 73 (42-76)
--- NOTE | 2020-08-05 00:03 | NUR ---
Patient discharged to home in stable condition. Written and verbal after care instructions given. Patient verbalizes understanding of instruction.
--- NOTE | 2020-08-05 00:03 | NUR ---
IV removed. Catheter intact and site benign. Pressure and 4x4 applied to site. No bleeding noted.
--- NOTE | 2020-08-05 00:04 | NUR ---
patient is calling an [employer].
--- NOTE | 2020-08-05 00:04 | NUR ---
patient is ambulatory with a steady gait.
[2020-08-05 00:20] VITALS: BP 113/74
== END 2020-08-05 00:04 | disposition home or self-care (01) ==
LOC: ER 20:40
DX: K43.2 Incisional hernia without obstruction or gangrene (principal); N39.0 Urinary tract infection, site not specified; R10.33 Periumbilical pain; R11.2 Nausea with vomiting, unspecified; E83.01 Wilson's disease; D84.9 Immunodeficiency, unspecified; Z94.4 Liver transplant status; Z98.84 Bariatric surgery status; Z90.49 Acquired absence of other specified parts of digestive tract; Z98.890 Other specified postprocedural states; Z88.5 Allergy status to narcotic agent; Z88.8 Allergy status to other drugs, medicaments and biological substances; Z79.899 Other long term (current) drug therapy
CPT/HCPCS: 36415; 74177; 80048; 80076; 81001; 83690; 84703; 85007; 85025; 87086; 96361; 96374; 96375; 96376; 99285; J1200; J2270 ×2; J2405; J7030; J7050; Q9967

== ENCOUNTER 2020-09-02 08:49 | Emergency (ER) | payer MEDICAID ==
[~2020-09-02] VITALS: Ht 165.1 cm; Wt 78.0 kg
[2020-09-02] MEDS ORDERED: KETOROLAC TROMETHAMINE 15 MG/ML VIAL ONE (09:13)
--- NOTE | 2020-09-02 09:20 | NUR ---
BIBS FROM HOME TO ER BED 7. AAOX4. NOT IN RESP DISTRESS. AMBULATORY. CAME INFOR A MID ABDOMINAL PAIN 2ND TO AN ABDOMINAL HERNIA. PT IS AWAITING FOR HER REPAIR SURGERY WHICH WILL BE IN SEP. PT RATES HER PAIN 10/10 THROBBING AND ACHING IN NATURE. DENIES N/V/D. WAS AT THE BEDSIDE FOR EVAL. ORDERS RECEIVED, NOTED AND CARRIED OUT. IV LINE ESTABLISHED ON LAC 18G. BLOOD DRAWN AND GIVEN TO FIELD ADJUSTER AT BEDSIDE. URINE HAS BEEN SUBMITTED BY THE PT AND SENT TO LAB. PT IS ENROUTE TO CT ON A GURNEY.
[2020-09-02 09:30] LABS: BASOPHILS % (AUTO) 0.7 % (0.0-2.0); EOSINOPHILS % (AUTO) 1.4 % (0.0-6.0); HEMATOCRIT 38 % (33-45); HEMOGLOBIN 12.6 g/dL (11.5-14.8); LYMPHOCYTES # (AUTO) 1.1 /CMM (0.8-4.8); MEAN CORPUSCULAR HGB CONC 33 g/dl (31.0-36.0); MEAN CORPUSCULAR VOLUME 90 fL (82-100); MONOCYTES # (AUTO) 0.3 /CMM (0.1-1.30); MONOCYTES % (AUTO) 6.4 % (2.0-12.0); NEUTROPHILS # (AUTO) 3.6 /CMM (1.8-8.9); NEUTROPHILS % (AUTO) 70.5 % (43.0-81.0); PLATELET COUNT (AUTO) 106 /CMM (150-450)
[2020-09-02] MEDS ORDERED: KETOROLAC TROMETHAMINE INJ 30 MG/ML VIAL IV ONE (09:30)
[2020-09-02 09:35] LABS: BILIRUBIN,URINE SMALL (NEGATIVE); CALCIUM, SERUM 8.1 mg/dL (8.5-10.1); COLOR,URINE YELLOW (YELLOW); CREATININE 0.8 mg/dL (0.6-1.3); LEUKOCYTE ESTERASE ,URINE Negative (NEGATIVE); NITRITE, URINE Negative (NEGATIVE); POTASSIUM 3.5 mmol/L (3.5-5.1); PROTEIN,URINE Negative (NEGATIVE); UGLUCOSE Negative (NEGATIVE)
[2020-09-02 09:40] LABS: ALBUMIN 2.4 g/dL (3.4-5.0); BILIRUBIN,DIRECT 0.8 mg/dL (0.0-0.2); BILIRUBIN,TOTAL 1.1 mg/dL (0.2-1.0); TOTAL PROTEIN, SERUM 6.9 g/dL (6.4-8.2)
[2020-09-02 09:42] LABS: BACTERIA,URINE Few /HPF (None Seen); SQUAMOUS EPITHELIAL CELL,UR Few /HPF (None Seen); WBC,URINE 0-2 /HPF (0-3)
--- NOTE | 2020-09-02 10:32 | NUR ---
VERIFIED WITH MD REGARDING COVID TEST. COVID ORDER IS ERROR. NO COVID TESTING NEEDED
[2020-09-02 10:52] VITALS: BP 114/83
--- NOTE | 2020-09-02 10:52 | NUR ---
Patient discharged to home in stable condition. Written and verbal after care instructions given. Patient verbalizes understanding of instruction.IV removed. Catheter intact and site benign. Pressure and 4x4 applied to site. No bleeding noted. Pt ambulatory with a steady gait
== END 2020-09-02 10:53 | disposition home or self-care (01) ==
LOC: ER 08:52
DX: K43.9 Ventral hernia without obstruction or gangrene (principal); R63.4 Abnormal weight loss; Z94.4 Liver transplant status; Z68.28 Body mass index [BMI] 28.0-28.9, adult; Z98.890 Other specified postprocedural states; Z88.5 Allergy status to narcotic agent; Z88.8 Allergy status to other drugs, medicaments and biological substances; Z79.899 Other long term (current) drug therapy
CPT/HCPCS: 36415; 74176; 80048; 80076; 81001; 83690; 84703; 85025; 96374; 99284; J1885

== ENCOUNTER 2020-10-29 20:17 | Emergency (ER) | payer MEDICAID ==
[~2020-10-29] VITALS: Ht 167.6 cm; Wt 78.0 kg
--- NOTE | 2020-10-29 20:29 | NUR ---
PATIENT CAME TO THE ER BED 4 BIB SELF C/O MID ABDOMINAL PAIN. PT IS COMPLAINING OF THE BULGING OF HER HERNIA THAT SHE IS SUPPOSED TO HAVE SURGERY ON OCTOBER 20. PATIENT'S SURGERY IS POSTPONE DUE TO HER TAKING PREDNISONE FOR HER LIVER TRANSPLANT BACK IN 2006. PATIENT HAS CHRONIC PAIN. PATIENT AAOX4. NO SOB. BREATHING EVENLY AND UNLABORED ON ROOM AIR. CONNECTED TO THE MONITOR.
--- NOTE | 2020-10-29 20:40 | NUR ---
URINE COLLECTED. SENT TO LAB
[2020-10-29 21:02] LABS: EOSINOPHILS % (AUTO) 0.4 % (0.0-6.0); MEAN CORPUSCULAR VOLUME 86 fL (82-100); RED BLOOD CELL COUNT(AUTO) 4.42 MIL/uL (4.0-5.2)
[2020-10-29 21:06] LABS: BASOPHILS % (AUTO) 0.3 % (0.0-2.0); HEMATOCRIT 38 % (33-45); HEMOGLOBIN 12.4 g/dL (11.5-14.8); LYMPHOCYTES # (AUTO) 1.6 /CMM (0.8-4.8); LYMPHOCYTES % (AUTO) 12.6 % (20.0-44.0); MEAN CORPUSCULAR HGB CONC 33 g/dl (31.0-36.0); MONOCYTES # (AUTO) 0.9 /CMM (0.1-1.30); MONOCYTES % (AUTO) 7.3 % (2.0-12.0); NEUTROPHILS % (AUTO) 79.4 % (43.0-81.0); PLATELET COUNT (AUTO) 80 /CMM (150-450); WHITE BLOOD COUNT (AUTO) 12.6 K/uL (4.3-11.0)
[2020-10-29] MEDS ORDERED: HYDROMORPHONE 1 MG/1 ML DISP.SYRIN ONE (21:07)
[2020-10-29] MEDS: HYDROMORPHONE INJ 2 MG/ML DISP.SYRIN IM ONE (21:13)
[2020-10-29 21:15] LABS: ALBUMIN 2.6 g/dL (3.4-5.0); BILIRUBIN,DIRECT 1.2 mg/dL (0.0-0.2); BILIRUBIN,TOTAL 1.9 mg/dL (0.2-1.0); CREATININE 0.9 mg/dL (0.6-1.3); POTASSIUM 3.1 mmol/L (3.5-5.1); TOTAL PROTEIN, SERUM 6.5 g/dL (6.4-8.2)
[2020-10-29 21:35] LABS: LYMPHOCYTES % (MANUAL) 14 % (16-48); MONOCYTES % (MANUAL) 7 % (0-11.0); NEUTROPHILS % (MANUAL) 79 (42-76)
[2020-10-29] MEDS ORDERED: TRAM50TA2 PO (21:35)
--- NOTE | 2020-10-29 21:40 | NUR ---
PATIENT WILL CALL [facility] TO PICK HER UP.
--- NOTE | 2020-10-29 21:43 | NUR ---
Patient discharged to home in stable condition. Written and verbal after care instructions given. Patient verbalizes understanding of instruction.
[2020-10-29 21:47] VITALS: BP 123/61
== END 2020-10-29 21:48 | disposition home or self-care (01) ==
LOC: ER 20:17
DX: K43.2 Incisional hernia without obstruction or gangrene (principal); E83.01 Wilson's disease; R11.2 Nausea with vomiting, unspecified; R10.10 Upper abdominal pain, unspecified; Z94.4 Liver transplant status; Z98.890 Other specified postprocedural states; Z88.5 Allergy status to narcotic agent; Z88.8 Allergy status to other drugs, medicaments and biological substances; Z79.899 Other long term (current) drug therapy
CPT/HCPCS: 36415; 80048-TC; 80076-TC; 85025-TC; J1170

== ENCOUNTER 2020-11-09 21:02 | Emergency (ER) | payer MEDICAID ==
[~2020-11-09] VITALS: Ht 167.6 cm; Wt 78.0 kg
[~2020-11-09 21:02] MED LIST changes: +TRAM50TA2 PO
--- NOTE | 2020-11-09 21:10 | NUR ---
THE PATIENT BIBSELF C/O LOWER ABDOMINAL PAIN. +NAUSEA/+VOMITTING. THE PATIENT RATES ABDOMINAL PAIN 10/10. THE PATIENT IS ALERT AND ORIENTED X4. DENIES SOB. RESPIRATION REGULAR AND UNLABORED. THE PATIENT HAS HX OF LIVER TRANSPLANT (2006). THE PATIENT IS PLACED ON A MONITOR. WARM BLANKET PROVIDED FOR COMFORT. WILL CONTINUE TO MONITOR.
[2020-11-09] MEDS ORDERED: IV NS 0.9% 1,000 ML BAG IV ONE (21:30)
[2020-11-09] MEDS ORDERED: diphenhydrAMINE HCL 50 MG/ML VIAL IV ONE (21:30)
[2020-11-09] MEDS ORDERED: HYDROMORPHONE INJ 2 MG/ML DISP.SYRIN IV ONE (21:30)
[2020-11-09] MEDS ORDERED: ONDANSETRON HCL/PF 4 MG/2 ML VIAL IVP ONE (21:30)
--- NOTE | 2020-11-09 21:37 | NUR ---
BLOOD SPECIMEN COLLECTED AND SENT TO THE LAB.
[2020-11-09] MEDS ORDERED: diphenhydrAMINE HCL ELIX 25 MG/10 ML UDC ONE (21:43)
[2020-11-09] MEDS ORDERED: ONDANSETRON HCL/PF 4 MG/2 ML VIAL ONE (21:43)
[2020-11-09] MEDS ORDERED: HYDROMORPHONE 1 MG/1 ML DISP.SYRIN ONE ×2 (21:44→23:11)
[2020-11-09] MEDS ORDERED: diphenhydrAMINE HCL 50 MG/ML VIAL ONE (21:46)
[2020-11-09 22:00] LABS: BASOPHILS # (AUTO) 0.1 /CMM (0.0-0.2); BASOPHILS % (AUTO) 4.2 % (0.0-2.0); EOSINOPHILS % (AUTO) 1.9 % (0.0-6.0); HEMATOCRIT 39 % (33-45); HEMOGLOBIN 12.6 g/dL (11.5-14.8); LYMPHOCYTES # (AUTO) 0.5 /CMM (0.8-4.8); LYMPHOCYTES % (AUTO) 15.7 % (20.0-44.0); MEAN CORPUSCULAR HGB CONC 32 g/dl (31.0-36.0); MEAN CORPUSCULAR VOLUME 88 fL (82-100); MONOCYTES # (AUTO) 0.1 /CMM (0.1-1.30); MONOCYTES % (AUTO) 4.2 % (2.0-12.0); NEUTROPHILS # (AUTO) 2.6 /CMM (1.8-8.9); PLATELET COUNT (AUTO) 74 /CMM (150-450); RED BLOOD CELL COUNT(AUTO) 4.44 MIL/uL (4.0-5.2); WHITE BLOOD COUNT (AUTO) 3.5 K/uL (4.3-11.0)
[2020-11-09 22:02] LABS: BILIRUBIN,URINE MODERATE (NEGATIVE); COLOR,URINE AMBER (YELLOW); LEUKOCYTE ESTERASE ,URINE NEGATIVE (NEGATIVE); NITRITE, URINE NEGATIVE (NEGATIVE); PROTEIN,URINE TRACE mg/dl (NEGATIVE); UGLUCOSE NEGATIVE (NEGATIVE)
[2020-11-09 22:14] LABS: BACTERIA,URINE 2+ /HPF (None Seen); RBC,URINE 0-2 /HPF (0-2); WBC,URINE 0-2 /HPF (0-3)
[2020-11-09] MEDS ORDERED: IOHEXOL-300 100 ML VIAL IV ONE (22:20)
[2020-11-09] MEDS ORDERED: IV NS 0.9% 250 ML IV ONE (22:20)
[2020-11-09] MEDS ORDERED: HYDROMORPHONE 1 MG/1 ML DISP.SYRIN IV ONE (23:00)
[2020-11-09 23:08] LABS: CALCIUM, SERUM 8.8 mg/dL (8.5-10.1); CREATININE 0.9 mg/dL (0.6-1.3); POTASSIUM 3.3 mmol/L (3.5-5.1)
[2020-11-09] MEDS ORDERED: TRAM50TA2 PO (23:11)
[2020-11-09 23:14] LABS: ALBUMIN 2.8 g/dL (3.4-5.0); BILIRUBIN,DIRECT 1.1 mg/dL (0.0-0.2); BILIRUBIN,TOTAL 1.6 mg/dL (0.2-1.0); TOTAL PROTEIN, SERUM 6.9 g/dL (6.4-8.2)
[2020-11-10] MEDS ORDERED: TRAMADOL HCL 50 MG TABLET ONE (00:03)
--- NOTE | 2020-11-10 00:08 | NUR ---
pt is medically stable for D/C. IV removed. Catheter intact and site benign. Pressure and 4x4 applied to site. No bleeding noted.Patient discharged to home in stable condition. Rx and Written and verbal after care instructions given. Patient verbalizes understanding of instruction.
[2020-11-10 00:09] VITALS: BP 131/75
[2020-11-10] MEDS ORDERED: TRAMADOL HCL 50 MG TABLET PO ONE (00:30)
[2020-11-10 02:12] LABS: EOSINOPHILS % (MANUAL) 3 % (0-4); LYMPHOCYTES % (MANUAL) 18 % (16-48); METAMYELOCYTES % 1 % (0-0); MONOCYTES % (MANUAL) 2 % (0-11.0); NEUTROPHILS % (MANUAL) 76 (42-76)
== END 2020-11-10 00:09 | disposition home or self-care (01) ==
LOC: ER 21:04
DX: K43.9 Ventral hernia without obstruction or gangrene (principal); R11.2 Nausea with vomiting, unspecified; Z94.4 Liver transplant status; Z90.49 Acquired absence of other specified parts of digestive tract; Z98.890 Other specified postprocedural states; Z88.5 Allergy status to narcotic agent; Z88.8 Allergy status to other drugs, medicaments and biological substances; Z79.899 Other long term (current) drug therapy
CPT/HCPCS: 36415; 74177; 80048; 80076; 81001; 83690; 84703; 85007; 85025; 87086; 96361; 96374; 96375; 96376; 99285; J1170 ×2; J1200; J2405; J7050; Q9967; J7030; Q0163

== ENCOUNTER 2020-12-11 19:22 | Inpatient (IN) | payer MEDICAID ==
[~2020-12-11] VITALS: Ht 165.1 cm; Wt 76.7 kg
--- NOTE | 2020-12-11 19:40 | NUR ---
URINE COLLECTED AND SENT TO LAB
--- NOTE | 2020-12-11 19:48 | NUR ---
BIBSELF C/O ABDOMINAL PAIN X 2 DAYS, PT AAOX4, DENIES SOB/CP, NOT IN ACUTE DISTRESS, -SOB, VSS , PENDING ER PROVIDER AYDE
[2020-12-11] MEDS ORDERED: ONDANSETRON HCL/PF 4 MG/2 ML VIAL ONE (20:26)
[2020-12-11] MEDS ORDERED: MORPHINE SULFATE INJ 4 MG/ML DISP.SYRIN ONE (20:26)
[2020-12-11] MEDS ORDERED: PANTOPRAZOLE 40 MG VIAL ONE (20:26)
[2020-12-11 20:28] LABS: BASOPHILS % (AUTO) 0.5 % (0.0-2.0); EOSINOPHILS % (AUTO) 1.1 % (0.0-6.0); HEMATOCRIT 37 % (33-45); HEMOGLOBIN 12.1 g/dL (11.5-14.8); LYMPHOCYTES # (AUTO) 0.7 /CMM (0.8-4.8); LYMPHOCYTES % (AUTO) 18.8 % (20.0-44.0); MEAN CORPUSCULAR HGB CONC 33 g/dl (31.0-36.0); MEAN CORPUSCULAR VOLUME 86 fL (82-100); MONOCYTES # (AUTO) 0.3 /CMM (0.1-1.30); MONOCYTES % (AUTO) 8.5 % (2.0-12.0); NEUTROPHILS # (AUTO) 2.6 /CMM (1.8-8.9); NEUTROPHILS % (AUTO) 71.1 % (43.0-81.0); PLATELET COUNT (AUTO) 62 /CMM (150-450); RED BLOOD CELL COUNT(AUTO) 4.32 MIL/uL (4.0-5.2); WHITE BLOOD COUNT (AUTO) 3.7 K/uL (4.3-11.0)
[2020-12-11 20:30] LABS: BILIRUBIN,URINE MODERATE (NEGATIVE); COLOR,URINE YELLOW (YELLOW); LEUKOCYTE ESTERASE ,URINE Negative (NEGATIVE); NITRITE, URINE Negative (NEGATIVE); PROTEIN,URINE 30 mg/dl (NEGATIVE); UGLUCOSE Negative (NEGATIVE)
[2020-12-11] MEDS ORDERED: ONDANSETRON HCL/PF 4 MG/2 ML VIAL IVP ONE (20:30)
[2020-12-11] MEDS ORDERED: MORPHINE SULFATE INJ 2 MG/ML DISP.SYRIN IV ONE (20:30)
[2020-12-11] MEDS ORDERED: PANTOPRAZOLE 40 MG VIAL IV ONE (20:30)
[2020-12-11] MEDS ORDERED: IV NS 0.9% 1,000 ML BAG IV ONE (20:30)
[2020-12-11 20:32] LABS: BACTERIA,URINE Rare /HPF (None Seen); RBC,URINE NONE SEEN /HPF (0-2); SQUAMOUS EPITHELIAL CELL,UR Few /HPF (None Seen); WBC,URINE NONE SEEN /HPF (0-3)
[2020-12-11] MEDS ORDERED: IOHEXOL-300 100 ML VIAL IV ONE (20:36)
[2020-12-11] MEDS ORDERED: IV NS 0.9% 250 ML IV ONE (20:37)
[2020-12-11 20:40] LABS: CALCIUM, SERUM 8.5 mg/dL (8.5-10.1); CREATININE 0.8 mg/dL (0.6-1.3)
[2020-12-11 20:46] LABS: ALBUMIN 2.6 g/dL (3.4-5.0); BILIRUBIN,DIRECT 0.7 mg/dL (0.0-0.2); BILIRUBIN,TOTAL 1.1 mg/dL (0.2-1.0); TOTAL PROTEIN, SERUM 6.3 g/dL (6.4-8.2)
[2020-12-11] MEDS ORDERED: diphenhydrAMINE HCL 50 MG/ML VIAL ONE ×2 (21:19→22:22)
[2020-12-11 21:28] LABS: BAND % (MANUAL) 2 % (0.0-5.0); LYMPHOCYTES % (MANUAL) 18 % (16-48); MONOCYTES % (MANUAL) 7 % (0-11.0); NEUTROPHILS % (MANUAL) 73 (42-76)
[2020-12-11] MEDS ORDERED: HYDROMORPHONE 1 MG/1 ML DISP.SYRIN IV ONE (22:00)
[2020-12-11] MEDS ORDERED: POTASSIUM CHLORIDE 20 MEQ TAB.PRT.SR PO ONE (22:00)
[2020-12-11] MEDS ORDERED: POTASSIUM CHLORIDE 20 MEQ POWDER PACKET ONE (22:08)
--- NOTE | 2020-12-11 22:24 | NUR ---
PT REQ FOR BENADRYL FOR ITCHING, VERBAL ORDER FROM CLARENCE VICENTE. ORDER GIVEN
[2020-12-11] MEDS ORDERED: diphenhydrAMINE HCL 50 MG/ML VIAL IV ONE (22:30)
[2020-12-11] MEDS ORDERED: ACETAMINOPHEN 325 MG TABLET PO PRN (23:00)
[2020-12-11] MEDS ORDERED: MAG HYDROX/AL HYDROX/SIMETH 30 ML UDC PO PRN (23:00)
[2020-12-11] MEDS ORDERED: MAGNESIUM HYDROXIDE 30 ML UDC PO PRN (23:00)
[2020-12-11] MEDS ORDERED: HYDROCODONE/APAP 5/325MG TABLET PO PRN (23:00)
[2020-12-11] MEDS ORDERED: ZOLPIDEM TARTRATE 5 MG TABLET PO PRN (23:00)
[2020-12-11] MEDS ORDERED: ONDANSETRON HCL/PF 4 MG/2 ML VIAL IVP PRN (23:00)
[2020-12-11] MEDS ORDERED: Z GUARD REMEDY 2 OZ OINT TP PRN (23:00)
[2020-12-11] MEDS ORDERED: IV D5/0.45 NACL 1,000 ML IV PRN (23:00)
--- NOTE | 2020-12-11 23:30 | NUR ---
report given to homer ann for florentino pt will be transported to 1st floor
--- NOTE | 2020-12-12 00:05 | NUR ---
RN NOTE RECEIVED PT FROM ER VIA WHEELCHAIR, ASSISTED PT TO BED SAFELY. WITH ADMITTING DIAGNOSIS OF HERNIA. PT ALERT AND ORIENTED X4. PT COMPLAINED OF ABDOMINAL PAIN, 8/10 SHARP PAIN. HERNIA BULGING ON LEFT ABDOMEN. NO S/SX OF DISTRESS NOTED. SKIN CLEAR AND INTACT, WITH OLD SURGICAL SCAR ON ABDOMEN. WITH RIGHT AC 20G, PATENT AND INTACT, FLUSHED. ORIENTED TO BED OPERATION, CALL LIGHT AND MEAL TIMES. ALL SAFETY MEASURES IMPLEMENTED PER PROTOCOL. BED LOCKED IN LOWEST POSITION, SIDE RAILS UP X2. CALL LIGHT WITHIN REACH.
--- NOTE | 2020-12-12 00:08 | NUR ---
PT TRANSPORTED TO 1ST FLOOR
[2020-12-12 00:30] VITALS: BP 111/66
[2020-12-12] MEDS: MORPHINE SULFATE INJ 2 MG/ML DISP.SYRIN IV PRN ×5 (00:35→17:37)
--- NOTE | 2020-12-12 00:54 | NUR ---
RN NOTE PT SEEN BY DR SCHAEFER AT 0036. PER PT SHE GETS ITCHY WHEN TAKING ANY PAIN MEDICATIONS AND WOULD TAKE BENADRYL WITH IT. ORDERED BENADRYL 25MG IVP Q6HPRN FOR ITCHING. ORDER NOTED AND CARRIED OUT. PT JUST HAD BENADRYL AT ER 2 HOURS AGO. MD NOTIFIED, EXPLAINED TO PT, VERBALIZES UNDERSTANDING. WILL GIVE ONCE ITS DUE.
[2020-12-12 04:00] VITALS: BP 98/56
[2020-12-12] MEDS: diphenhydrAMINE HCL 50 MG/ML VIAL IV PRN ×3 (04:51→17:37)
--- NOTE | 2020-12-12 06:36 | NUR ---
RN CLOSING NOTE PT IN BED, SLEEPING, AROUSES EASILY. DENIES ANY SOB. TOLERATING ROOM AIR. PT ABLE TO MAKE NEEDS KNOWN, AMBULATES TO RESTROOM. PT WITH CONSTANT PAIN, RELIEVES BY POSITIONING AND MORPHINE. PT REMAIN NPO, ON IVF D51/2 NS RUNNING AT 75 ML/HR. NO SIGNS OF INFILTRATION NOTED. ALL NEEDS ATTENDED, CALL LIGHT WITHIN REACH AT ALL TIMES. WILL ENDORSE TO NEXT SHIFT NURSE FOR RICKY.
[2020-12-12 06:49] LABS: CALCIUM, SERUM 8.2 mg/dL (8.5-10.1); CREATININE 0.7 mg/dL (0.6-1.3); PHOSPHORUS 3.4 mg/dL (2.5-4.9); POTASSIUM 3.7 mmol/L (3.5-5.1)
[2020-12-12 06:53] LABS: THYROID STIMULATING HORMONE 5.279 uIU/mL (0.358-3.74)
[2020-12-12 07:17] LABS: BASOPHILS % (AUTO) 0.5 % (0.0-2.0); HEMATOCRIT 34 % (33-45); HEMOGLOBIN 11.2 g/dL (11.5-14.8); LYMPHOCYTES # (AUTO) 0.7 /CMM (0.8-4.8); LYMPHOCYTES % (AUTO) 25.4 % (20.0-44.0); MEAN CORPUSCULAR HGB CONC 33 g/dl (31.0-36.0); MEAN CORPUSCULAR VOLUME 87 fL (82-100); MONOCYTES # (AUTO) 0.3 /CMM (0.1-1.30); MONOCYTES % (AUTO) 9.2 % (2.0-12.0); NEUTROPHILS # (AUTO) 1.7 /CMM (1.8-8.9); NEUTROPHILS % (AUTO) 62.9 % (43.0-81.0); WHITE BLOOD COUNT (AUTO) 2.8 K/uL (4.3-11.0)
--- NOTE | 2020-12-12 07:29 | NUR ---
RN OPENING NOTE PATIENT RESTING IN BED ASLEEP AROUSES TO LIGHT TOUCH. A/O X3 AND TURKISH SPEAKING. NO COMPLAINT OF PAIN OR NAUSEA. NO EDEMA PRESENT. SKIN IS INTACT. SELF AMBULATORY WITH BATHROOM PRIVILEGES. IV PRESENT ON R AC 20G. SAFETY MEASURES IN PLACE. SIDE RAILS RAISED. BED LOWERED. CALL LIGHT WITHIN REACH. WILL CONTINUE TO MONITOR.
[2020-12-12 07:36] LABS: PLATELET COUNT (AUTO) 49 /CMM (150-450)
[2020-12-12 08:00] VITALS: BP 83/52
--- NOTE | 2020-12-12 08:00 | NUR ---
RN OPENING NOTE PATIENT AWAKE IN BED. A/O X3 AND SINGAPOREAN SPEAKING. COMPLAINT OF PAIN 8/10 PRESENT. NO COMPLAINT OF NAUSEA. NO EDEMA PRESENT. SELF AMBULATORY WITH BATHROOM PRIVILEGES. SKIN IS INTACT. NPO STATS. HL PRESENT ON R AC 20G. SAFETY MEASURES IN PLACE. SIDE RAILS RAISED. BED LOWERED. CALL LIGHT WITHIN REACH. WILL CONTINUE TO MONITOR.
[2020-12-12] MEDS ORDERED: [UNRECOGNIZED DRUG - CODE] PO (08:33)
[2020-12-12] MEDS ORDERED: BACTRIM PO (08:33)
[2020-12-12] MEDS ORDERED: CYCL100C23 PO (08:33)
[2020-12-12] MEDS ORDERED: FURO-144 PO (08:33)
[2020-12-12] MEDS ORDERED: PANTOPRAZOLE 40 MG VIAL IV SCH (09:00)
--- NOTE | 2020-12-12 11:04 | NUR ---
CHARGE NURSE NOTE DR. ALLAN AT BEDSIDE, PER HIM, PATIENT CLEAR FOR DISCHARGE. PATIENT CAN HAVE MECHANICAL SOFT DIET, FOLLOW UP WITH HER SURGEON FOR ANY POSSIBLE SURGERY DONE AT ANOTHER HOSPITAL. PRIMARY MD NOTIFIED.
[2020-12-12 11:07] LABS: EOSINOPHILS % (MANUAL) 2 % (0-4); LYMPHOCYTES % (MANUAL) 27 % (16-48); MONOCYTES % (MANUAL) 5 % (0-11.0); NEUTROPHILS % (MANUAL) 66 (42-76)
[2020-12-12 12:00] VITALS: BP 100/62
--- NOTE | 2020-12-12 19:09 | NUR ---
PATIENT DISCHARGED HOME VIA PRIVATE CAR. EXITCARE UTILIZED AND EDUCATION GIVEN TO PATIENT. F/U WITH PRIVATE SURGEON NEXT TUESDAY. PRESCRIPTIONS SENT ELECTRONICALLY TO PHARMACY. ID BAND REMOVED. HL REMOVED. V/S STABLE.
== END 2020-12-12 19:09 | disposition home or self-care, planned readmission (81) | DRG 254 ==
LOC: ER 19:25 → MEDSG1 23:56
PROVIDERS: ADMIT Student in an Organized Health Care Education/Training Program; ATTEND Nurse Practitioner Acute Care
DX: K43.9 Ventral hernia without obstruction or gangrene (principal); D69.6 Thrombocytopenia, unspecified; R18.8 Other ascites; E44.0 Moderate protein-calorie malnutrition; Z94.4 Liver transplant status; E83.01 Wilson's disease; E87.6 Hypokalemia; R74.01 Elevation of levels of liver transaminase levels; Z68.28 Body mass index [BMI] 28.0-28.9, adult; Z20.822 Contact with and (suspected) exposure to COVID-19; Z98.84 Bariatric surgery status; Z90.49 Acquired absence of other specified parts of digestive tract; Z88.5 Allergy status to narcotic agent; Z88.8 Allergy status to other drugs, medicaments and biological substances; Z79.899 Other long term (current) drug therapy
CPT/HCPCS: 36415; 80048-TC; 80061-TC; 80076-TC; 81001; 83690-TC; 83735-TC; 84100-TC; 84443-TC; 84702-TC; 84703-TC; 85025-TC; 87081-TC; C9113; C9803; G0378; J1170; J1200; J2270; J2405; J3490; J7030; J7050; Q9967

== ENCOUNTER 2021-03-22 22:05 | Emergency (ER) | payer MEDICAID, OTHER ==
[~2021-03-22] VITALS: Ht 165.1 cm; Wt 65.3 kg
[~2021-03-22 22:05] MED LIST changes: +BACTRIM PO; -CEPH-570 PO; +CYCL100C23 PO; +FURO-144 PO; -POTA20TA83 PO; -TACR1CAP2 PO; +[UNRECOGNIZED DRUG - CODE] PO
[2021-03-22] MEDS ORDERED: KETOROLAC TROMETHAMINE INJ 30 MG/ML VIAL IM STA (22:48)
[2021-03-22] MEDS ORDERED: BENZONATATE 100 MG CAPSULE PO STA (22:48)
[2021-03-22] MEDS ORDERED: GUAIFENESIN LA 600 MG TABLET.SA PO STA (22:48)
[2021-03-22] MEDS ORDERED: KETOROLAC TROMETHAMINE INJ 30 MG/ML VIAL ONE (22:56)
[2021-03-22] MEDS ORDERED: GUAIFENESIN LA 600 MG TABLET.SA PO ONE (22:56)
[2021-03-22] MEDS ORDERED: GUAIFENESIN/D-METHORPHAN HB 5 ML UDC ONE (22:58)
[2021-03-22] MEDS ORDERED: GUAIFENESIN/D-METHORPHAN HB 5 ML UDC PO ONE (23:00)
--- NOTE | 2021-03-22 23:07 | NUR ---
VERNON FROM HOME. AAOX4. NOT IN RESP DISTRESS. TRANSFERRED FROM WHEELCHAIR TO BED WITHOUT. BROUGHT IN FOR FLU LIKE SYMPTOMS. COUGH, FEVER, BODY ACHEAND COVID POSITIVE X 2 DAYS. WAS AT THE BEDSIDE FOR EVAL. ORDERS RECEIVED, NOTED AND CARRIED OUT.
[2021-03-22] MEDS ORDERED: GUAI600T53 PO (23:25)
[2021-03-22] MEDS ORDERED: IBUP-1957 PO (23:25)
[2021-03-22] MEDS ORDERED: BENZ-13 PO (23:25)
--- NOTE | 2021-03-22 23:35 | NUR ---
Patient discharged to home in stable condition. Written and verbal after care instructions given. Patient verbalizes understanding of instruction. Pt ambulatory with a steady gait
[2021-03-22 23:48] VITALS: BP 101/62
== END 2021-03-22 23:48 | disposition home or self-care (01) ==
LOC: ER 22:05
DX: U07.1 COVID-19 (principal); Z88.5 Allergy status to narcotic agent; Z88.8 Allergy status to other drugs, medicaments and biological substances; Z79.899 Other long term (current) drug therapy
CPT/HCPCS: 96372; 99283; J1885

== ENCOUNTER 2021-06-05 19:09 | Emergency (ER) | payer MEDICAID, OTHER ==
[~2021-06-05] VITALS: Ht 165.1 cm; Wt 59.4 kg
[~2021-06-05 19:09] MED LIST changes: +BENZ-13 PO; +GUAI600T53 PO; +IBUP-1957 PO
--- NOTE | 2021-06-05 19:45 | NUR ---
PATIENT BIBSELF C/O RIGHT SIDED NECK AND ABDOMEN PAIN S/P LIVER BIOPSY 2 DAYS AGO. PATIENT IS A/OX 4, RR EVEN AND UNLABORED, NO SOB NOTED. PATIENT CONNECTED TO CARDIAC AND POX MONITOR.
[2021-06-05] MEDS ORDERED: ONDANSETRON HCL/PF 4 MG/2 ML VIAL ONE (20:29)
[2021-06-05] MEDS ORDERED: HYDROMORPHONE 1 MG/1 ML DISP.SYRIN ONE (20:30)
[2021-06-05] MEDS ORDERED: ONDANSETRON HCL/PF 4 MG/2 ML VIAL IVP ONE (20:30)
[2021-06-05] MEDS ORDERED: HYDROMORPHONE INJ 2 MG/ML DISP.SYRIN IV ONE (20:30)
[2021-06-05 20:35] LABS: BILIRUBIN,URINE MODERATE (NEGATIVE); COLOR,URINE YELLOW (YELLOW); LEUKOCYTE ESTERASE ,URINE Negative (NEGATIVE); NITRITE, URINE Negative (NEGATIVE); PROTEIN,URINE 30 mg/dl (NEGATIVE); UGLUCOSE Negative (NEGATIVE); UROBILINOGEN,URINE 0.2 EU/dL (0.2)
[2021-06-05 20:39] LABS: BACTERIA,URINE Rare /HPF (None Seen); SQUAMOUS EPITHELIAL CELL,UR Few /HPF (None Seen); WBC,URINE NONE SEEN /HPF (0-3)
[2021-06-05 20:44] LABS: BASOPHILS # (AUTO) 0.1 K/uL (0.0-0.2); BASOPHILS % (AUTO) 0.8 % (0.0-2.0); EOSINOPHILS % (AUTO) 0.4 % (0.0-6.0); HEMATOCRIT 47 % (33-45); HEMOGLOBIN 15.4 g/dL (11.5-14.8); LYMPHOCYTES # (AUTO) 1.2 K/uL (0.8-4.8); LYMPHOCYTES % (AUTO) 7.4 % (20.0-44.0); MEAN CORPUSCULAR HGB CONC 33 g/dl (31.0-36.0); MEAN CORPUSCULAR VOLUME 85 fL (82-100); MONOCYTES # (AUTO) 1.8 K/uL (0.1-1.30); NEUTROPHILS % (AUTO) 80.4 % (43.0-81.0); PLATELET COUNT (AUTO) 162 K/uL (150-450); RED BLOOD CELL COUNT(AUTO) 5.53 MIL/uL (4.0-5.2); WHITE BLOOD COUNT (AUTO) 16.2 K/uL (4.3-11.0)
[2021-06-05] MEDS ORDERED: IOHEXOL-300 100 ML VIAL IV ONE (20:48)
--- NOTE | 2021-06-05 21:00 | NUR ---
PATIENT TAKEN TO CT
[2021-06-05 21:04] LABS: ALANINE AMINOTRANSFERASE 216 U/L (12-78); ALBUMIN 3.7 g/dL (3.4-5.0); ALKALINE PHOSPHATASE 821 U/L (46-116); ASPARTATE AMINOTRANSFERASE 124 U/L (15-37); BILIRUBIN,DIRECT 1.6 mg/dL (0.0-0.2); BILIRUBIN,TOTAL 2.9 mg/dL (0.2-1.0); CALCIUM, SERUM 8.9 mg/dL (8.5-10.1); CARBON DIOXIDE 32 mmol/L (21-32); CHLORIDE 98 mmol/L (98-107); CREATININE 1.3 mg/dL (0.6-1.3); GLUCOSE 93 mg/dL (74-106); LIPASE 258 U/L (73-393); SODIUM SERUM 139 mmol/L (136-145); TOTAL PROTEIN, SERUM 8.2 g/dL (6.4-8.2); UREA NITROGEN, BLOOD 27 mg/dL (7-18)
[2021-06-05 21:05] LABS: POTASSIUM 2.7 mmol/L (3.5-5.1)
[2021-06-05] MEDS ORDERED: POTASSIUM CHLORIDE 20 MEQ TAB.PRT.SR PO ONE ×2 (21:30→21:38)
--- NOTE | 2021-06-05 21:39 | NUR ---
CALLED [facility] FOR [facility]
--- NOTE | 2021-06-05 21:46 | NUR ---
CALLED [facility] FOR TRANSFER REQUEST, LEFT VOICE MESSAGE, AWAITING RETURN CALL
--- NOTE | 2021-06-05 22:14 | NUR ---
CALLED [facility] TO PAGE Dr Jackman, AWAITING CALL BACK
[2021-06-05] MEDS ORDERED: OXYC5CAP18 PO (22:40)
[2021-06-05] MEDS ORDERED: oxyCODONE IR immediate release 5 MG ONE (22:44)
--- NOTE | 2021-06-05 22:44 | NUR ---
Patient discharged to home in stable condition. Written and verbal after care instructions given. Patient verbalizes understanding of instruction.
[2021-06-05 22:45] VITALS: BP 123/77
--- NOTE | 2021-06-05 22:45 | NUR ---
RX GIVEN TO PATIENT.
[2021-06-05] MEDS ORDERED: oxyCODONE IR immediate release 5 MG PO PRN (23:00)
== END 2021-06-05 23:46 | disposition home or self-care (01) ==
LOC: ER 19:14
DX: R10.9 Unspecified abdominal pain (principal); E87.6 Hypokalemia; E83.01 Wilson's disease; Z20.822 Contact with and (suspected) exposure to COVID-19; Z94.4 Liver transplant status; D75.1 Secondary polycythemia; D72.829 Elevated white blood cell count, unspecified; Z91.19 Patient's noncompliance with other medical treatment and regimen; R16.1 Splenomegaly, not elsewhere classified
CPT/HCPCS: 36415; 74177; 80048; 80076; 81001; 83690; 84484; 85025; 87086; 87426; 96374; 96375; 99285; C9803; J1170; J2405; Q9967